=== PATIENT | male | born 1980 | race Hispanic/Latino ===

== ENCOUNTER 2022-04-05 11:22 | Day surgery (SDC) | payer BC ==
[2022-04-02 13:22] VITALS: BP 106/67
[~2022-04-05] VITALS: Ht 170.2 cm; Wt 90.7 kg
[~2022-04-05 11:22] MED LIST: NALT50TA PO; PANT40TA54 PO; PRED20TA3 PO; RIFA550T PO
[2022-04-05 11:30] VITALS: BP 102/61
[2022-04-05] MEDS ORDERED: 0.9%NACL 1000ML 1,000 ML IV ONE (11:48)
[2022-04-05] MEDS ORDERED: PROPOFOL 10 MG/ML 20ML VIAL IV ONE (14:12)
[2022-04-05 14:45] VITALS: BP 99/50
[2022-04-05 14:50] VITALS: BP 108/60
[2022-04-05 14:55] VITALS: BP 107/59
== END 2022-04-05 16:27 | disposition home or self-care (01) ==
LOC: DAH 11:22 → ENDO 11:22
PROVIDERS: ATTEND Internal Medicine Gastroenterology
DX: K76.6 Portal hypertension (principal); I85.10 Secondary esophageal varices without bleeding; K70.31 Alcoholic cirrhosis of liver with ascites; K22.10 Ulcer of esophagus without bleeding; Z98.890 Other specified postprocedural states; Z98.84 Bariatric surgery status; Z72.89 Other problems related to lifestyle; Z87.891 Personal history of nicotine dependence
CPT/HCPCS: 87426; 43244; J7030; J2704

== ENCOUNTER 2022-10-05 09:40 | Day surgery (SDC) | payer BC ==
[~2022-10-05] VITALS: Ht 170.2 cm; Wt 104.3 kg
[~2022-10-05 09:40] MED LIST changes: +FURO20TA6 PO; +LACT10SO9 PO; -NALT50TA PO; -PRED20TA3 PO
[2022-10-05 11:00] VITALS: BP 113/74
[2022-10-05 11:33] LABS: INR 1.23 (0.85-1.15); PROTHROMBIN TIME 13.3 SEC (9.6-11.6)
[2022-10-05 11:34] LABS: PARTIAL THROMBOPLASTIN TIME 42.6 SEC (26.3-35.5)
[2022-10-05] MEDS ORDERED: IRON 65MG PO (12:17)
[2022-10-05] MEDS ORDERED: VITA1TAB22 PO (12:17)
[2022-10-05] MEDS ORDERED: FURO40TA5 PO (12:17)
[2022-10-05] MEDS ORDERED: PROPOFOL 10 MG/ML 20ML VIAL IV ONE (13:09)
[2022-10-05] MEDS ORDERED: LIDOCAINE PF 100MG/5ML (2%) SYRINGE 5ML ONE (13:09)
[2022-10-05] MEDS ORDERED: 0.9%NACL 1000ML 1,000 ML IV ONE (13:42)
== END 2022-10-05 14:40 | disposition home or self-care (01) ==
LOC: ENDO 09:40 → DAH 09:40 → ENDO 14:40
PROVIDERS: ATTEND Internal Medicine Gastroenterology
DX: K70.30 Alcoholic cirrhosis of liver without ascites (principal); I85.10 Secondary esophageal varices without bleeding; Z20.822 Contact with and (suspected) exposure to COVID-19; K76.6 Portal hypertension; K21.00 Gastro-esophageal reflux disease with esophagitis, without bleeding; K31.89 Other diseases of stomach and duodenum; K29.00 Acute gastritis without bleeding; Z88.8 Allergy status to other drugs, medicaments and biological substances; Z91.040 Latex allergy status; Z88.4 Allergy status to anesthetic agent; Z87.891 Personal history of nicotine dependence; Z72.89 Other problems related to lifestyle; Z79.899 Other long term (current) drug therapy
CPT/HCPCS: 87635; 85610; 85730; 36415; 43244; C9803; J7030 ×2; J2001; J2704; A4620; A4215 ×2; A4223; A4657; A7002; A4222; A4221; A4663; A4606